=== PATIENT | female | born 1980 | race Caucasian/White ===

== ENCOUNTER 2019-08-30 15:45 | Inpatient (IN) | payer BC ==
[~2019-08-30] VITALS: Ht 162.6 cm; Wt 89.5 kg
[2019-08-30] MEDS ORDERED: ARIP5TAB13 PO (16:28)
[2019-08-30] MEDS ORDERED: PARO40TA61 PO (16:28)
[2019-08-30] MEDS ORDERED: SODIUM CHLORIDE FLUSH 10ML SYR IVF ONE (17:00)
[2019-08-30 17:25] LABS: BASOPHILS # (AUTO) 0.04 x10^3/uL (0-0.1); BASOPHILS % (AUTO) 0 % (0-1); EOSINOPHILS # (AUTO) 0.18 x10^3/uL (0-0.4); EOSINOPHILS % (AUTO) 1 % (1-7); LYMPHOCYTES # (AUTO) 2.21 x10^3/uL (1-3.4); LYMPHOCYTES % (AUTO) 17 % (22-44); MD NO; MEAN CORPUSCULAR HEMOGLOBIN 32.2 pg (27.0-34.8); MEAN CORPUSCULAR HGB CONC 33.9 g/dL (32.4-35.8); MEAN CORPUSCULAR VOLUME 94.8 fL (80-100); MEAN PLATELET VOLUME 7.4 fL (7.4-10.4); MONOCYTES # (AUTO) 0.57 x10^3/uL (0.2-0.8); MONOCYTES % (AUTO) 4 % (2-9); NEUTROPHILS # (AUTO) 10.25 x10^3/uL (1.8-6.8); NEUTROPHILS % (AUTO) 77 % (42-75); PLATELET COUNT 358 x10^3/uL (130-400); RED CELL DISTRIBUTION WIDTH 13.6 % (9.6-15.2)
[2019-08-30 17:37] LABS: ALANINE AMINOTRANSFERASE 39 U/L (12-78); ALBUMIN 3.7 g/dL (3.4-5.0); ANION GAP 6 mmol/L (5-15); CALCIUM 8.8 mg/dL (8.5-10.1); CHLORIDE 107 mmol/L (98-107)
[2019-08-30 17:42] LABS: ALKALINE PHOSPHATASE 80 U/L (45-117); BILIRUBIN,TOTAL 0.2 mg/dL (0.2-1.0); CREATININE 0.76 mg/dL (0.55-1.02)
[2019-08-30 18:00] LABS: MICROSCOPIC NOT IND
[2019-08-30 18:01] LABS: CULTURE INDICATED? NO
[2019-08-30] MEDS ORDERED: HYDROmorphone 1 MG/ML, 1ML VIAL ONE ×2 (18:07→22:25)
[2019-08-30] MEDS ORDERED: HYDROmorphone 1 MG/ML, 1ML VIAL IV ONE (18:30)
[2019-08-30] MEDS ORDERED: HYDROmorphone 1 MG/ML, 1ML INJ IV ONE (18:30)
--- NOTE | 2019-08-30 19:11 | NUR ---
MANOJAR TELEPHONE HAND-OFF REPORT TO RYANN WRIGHT IN PRE-OP.
[2019-08-30] MEDS ORDERED: CEFOTETAN PMX 1GM/50ML 50 ML ONE (19:14)
[2019-08-30] MEDS ORDERED: CEFOTETAN PMX 1GM/50ML 50 ML IV ONE (19:30)
[2019-08-30] MEDS ORDERED: BUPIVACAINE/PF 0.5% ONE (20:09)
[2019-08-30] MEDS ORDERED: EPINEPHRINE 1 MG/ML, 1ML ONE (20:09)
[2019-08-30 20:21] VITALS: BP 125/78
[2019-08-30] MEDS ORDERED: MIDAZOLAM 1 MG/ML, 2ML ONE (20:41)
[2019-08-30] MEDS ORDERED: FENTANYL PF 250 MCG/5ML ONE (20:42)
[2019-08-30] MEDS ORDERED: KETOROLAC 30 MG/1 ML ONE (21:03)
[2019-08-30] MEDS ORDERED: LIDOCAINE PF 2%, 5ML ONE (21:03)
[2019-08-30] MEDS ORDERED: DEXAMETHASONE 4 MG/ML, 1ML ONE (21:45)
[2019-08-30] MEDS ORDERED: GLYCOPYRROLATE 0.2MG/1ML, 5ML ONE (21:45)
[2019-08-30] MEDS ORDERED: ONDANSETRON 2MG/ML, 2ML ONE (21:45)
[2019-08-30] MEDS ORDERED: SUCCINYLCHOLINE 20 MG/ML, 10ML ONE (21:45)
[2019-08-30] MEDS ORDERED: ROCURONIUM 10MG/ML,5ML ONE (21:45)
[2019-08-30] MEDS ORDERED: PROPOFOL 10 MG/ML, 20ML ONE (21:45)
[2019-08-30] MEDS ORDERED: NEOSTIGMINE 1 MG/ML, 10ML ONE (21:45)
[2019-08-30] MEDS ORDERED: CEFAZOLIN 1,000 MG ONE (21:45)
[2019-08-30] MEDS ORDERED: FENTANYL PF 100 MCG/2ML ONE ×2 (21:45→22:25)
[2019-08-30] MEDS ORDERED: OXYcodone 5 MG/5 ML ORAL.SOL UDC ONE (22:25)
[2019-08-30] MEDS ORDERED: PROMETHAZINE 25 MG/ML, 1ML IV PRN (22:30)
[2019-08-30] MEDS ORDERED: OXYcodone 5 MG/5 ML ORAL.SOL UDC PO PRN (22:30)
[2019-08-30] MEDS ORDERED: ONDANSETRON 2MG/ML, 2ML IV PRN ×2 (22:30→23:45)
[2019-08-30] MEDS ORDERED: MEPERIDINE/PF 25MG/ML,1ML IVPush PRN (22:30)
[2019-08-30] MEDS ORDERED: LABETALOL 5MG/ML, 20ML IV PRN (22:30)
[2019-08-30] MEDS ORDERED: hydrALAzine 20 MG/ML, 1ML IV PRN (22:30)
[2019-08-30] MEDS ORDERED: HYDROmorphone 2 MG/ML, 1ML IVPush PRN (22:30)
[2019-08-30] MEDS: FENTANYL PF 100 MCG/2ML IV PRN ×2 (22:32→22:37)
[2019-08-30 23:21] VITALS: BP 133/83
[2019-08-30] MEDS ORDERED: DEXAMETHASONE 4 MG/ML, 1ML IVPush PRN (23:45)
[2019-08-30] MEDS ORDERED: CALCIUM CARBONATE 500 MG TAB.CHEW PO PRN (23:45)
[2019-08-30] MEDS ORDERED: DIPHENHYDRAMINE 25 MG CAPSULE PO PRN (23:45)
[2019-08-30] MEDS ORDERED: SCOPOLAMINE PATCH, 1.5MG PATCH.TD72 TD PRN (23:45)
[2019-08-30] MEDS ORDERED: DIPHENHYDRAMINE 50 MG/ML, 1ML IVPush PRN (23:45)
[2019-08-30] MEDS ORDERED: ENOXAPARIN 40 MG/0.4 ML SQ SCH (23:45)
[2019-08-30] MEDS: LACTATED RINGERS 1,000 ML IV SCH (23:45)
[2019-08-30] MEDS ORDERED: HALOPERIDOL 5 MG/ML IVPush PRN (23:45)
[2019-08-31 00:52] VITALS: BP 122/78
[2019-08-31 01:09] VITALS: BP 133/83
[2019-08-31] MEDS: OXYcodone IR 5MG TABLET PO PRN ×2 (01:23→04:23)
[2019-08-31] MEDS: ACETAMINOPHEN 500 MG TABLET PO SCH ×2 (01:30→08:37)
[2019-08-31] MEDS: HYDROmorphone 2 MG/ML, 1ML IVPush PRN ×2 (02:20→06:53)
[2019-08-31] MEDS: LACTATED RINGERS 1,000 ML IV SCH (02:22)
[2019-08-31 02:25] VITALS: BP 121/77
[2019-08-31] MEDS ORDERED: IBUPROFEN 600 MG TABLET PO SCH (05:00)
[2019-08-31 05:40] LABS: MEAN CORPUSCULAR HEMOGLOBIN 31.6 pg (27.0-34.8); MEAN CORPUSCULAR HGB CONC 33.2 g/dL (32.4-35.8); MEAN CORPUSCULAR VOLUME 95.2 fL (80-100); PLATELET COUNT 350 x10^3/uL (130-400); RED BLOOD COUNT 4.32 x10^6/uL (3.82-5.3)
[2019-08-31 05:48] LABS: CHLORIDE 106 mmol/L (98-107)
[2019-08-31 05:56] LABS: ALANINE AMINOTRANSFERASE 72 U/L (12-78); ALBUMIN 3.4 g/dL (3.4-5.0); ALKALINE PHOSPHATASE 79 U/L (45-117); ANION GAP 10 mmol/L (5-15); BILIRUBIN,TOTAL 0.3 mg/dL (0.2-1.0); CALCIUM 8.6 mg/dL (8.5-10.1); CREATININE 0.84 mg/dL (0.55-1.02); TOTAL PROTEIN 7.2 g/dL (6.4-8.2)
[2019-08-31 06:01] LABS: BASOPHILS % (AUTO) 0 % (0-1); EOSINOPHILS % (AUTO) 0 % (1-7); LYMPHOCYTES # (AUTO) 1.24 x10^3/uL (1-3.4); LYMPHOCYTES % (AUTO) 6 % (22-44); MD SCAN; MONOCYTES # (AUTO) 0.03 x10^3/uL (0.2-0.8); MONOCYTES % (AUTO) 0 % (2-9); NEUTROPHILS % (AUTO) 94 % (42-75)
[2019-08-31 07:25] VITALS: BP 113/71
[2019-08-31] MEDS ORDERED: OXYC5TAB3 PO (11:26)
[2019-08-31] MEDS ORDERED: ACET-2065 PO (11:27)
[2019-08-31] MEDS ORDERED: IBUP-1222 PO (11:28)
[2019-08-31] MEDS ORDERED: DOCU-131 PO (11:29)
[2019-08-31 11:42] VITALS: BP 122/73
== END 2019-08-31 12:35 | disposition home or self-care (01) | DRG 419 ==
LOC: ED 17:59 → EDIP 19:09 → 4NE 20:12 → DCLOUNGE 08-31 12:10
PROVIDERS: ADMIT Student in an Organized Health Care Education/Training Program; ATTEND Student in an Organized Health Care Education/Training Program
PROC: 0FT44ZZ Resection of Gallbladder, Percutaneous Endoscopic Approach (ICD-10-PCS; principal; 2019-08-30 21:00)
DX: K80.00 Calculus of gallbladder with acute cholecystitis without obstruction (principal); K76.0 Fatty (change of) liver, not elsewhere classified; F32.9 Major depressive disorder, single episode, unspecified; Z87.891 Personal history of nicotine dependence; E66.9 Obesity, unspecified; Z68.33 Body mass index [BMI] 33.0-33.9, adult
CPT/HCPCS: 36415; 74022; S0020; 76700; 80053; 81003; 83690; 83735; 84703; 85025; 88304; 93005; G0378; J0171; J0690; J1100; J1170; J1650; J1885; J2250; J2405; J2704; J2710; J3010; J0330; J3490; J7120